=== PATIENT | female | born 1935 | race Caucasian/White ===

== ENCOUNTER 2018-05-10 20:20 | Inpatient (IN) ==
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
[2018-05-10 21:01] LABS: Baso # (Auto) 0.1 th/mm3 (0.0-0.2); Baso % (Auto) 1.7 % (0.0-2.0); Eos % (Auto) 0.7 % (0.0-4.0); Hematocrit 46.3 % (35.0-46.0); Hemoglobin 15.1 gm/dL (11.6-15.3); Lymph # (Auto) 1.9 th/mm3 (1.0-4.8); Lymph % (Auto) 29.3 % (9.0-44.0); Mean Corpuscular HGB Conc 32.5 % (32.0-36.0); Mean Corpuscular Hemoglobin 30.9 pg (27.0-34.0); Mean Corpuscular Volume 95.1 fL (80.0-100.0); Mean Platelet Volume 8.4 fL (7.0-11.0); Mono # (Auto) 0.2 th/mm3 (0.0-0.9); Neut # (Auto) 4.2 th/mm3 (1.8-7.7); Neut % (Auto) 65.3 % (16.0-70.0); Platelet Count 194 th/mm3 (150-450); Red Blood Count 4.87 mil/mm3 (4.00-5.30); Red Cell Distribution Width 13.8 % (11.6-17.2); White Blood Count 6.4 th/mm3 (4.0-11.0)
[2018-05-10 21:03] LABS: Activated Partial Thrombo Time 25.7 sec (23.4-31.7); Prothrombin Time 9.8 sec (9.8-11.6)
--- NOTE | 2018-05-10 21:06 | CT ---
EXAM DATE: 05/10/2018 8:57 PM EST AGE/SEX: 83 years / Female INDICATIONS: Stroke alert. Right side weakness. CLINICAL DATA: This is the patient's initial encounter. Patient reports that signs and symptoms have been present for 1 day and indicates a pain score of 0/10. MEDICAL/SURGICAL HISTORY: None. None. RADIATION DOSE: 57.61 CTDI (mGy) COMPARISON: [facility], CT BRAIN W/O CONTRAST, 04/29/2015. . TECHNIQUE: CT of the head without contrast. Using automated exposure control and adjustment of the mA and/or kV according to patient size, radiation dose was kept as low as reasonably achievable to ob tain optimal diagnostic quality images. DICOM format image data is available electronically for revi ew and comparison. FINDINGS: There is central and cortical atrophy with dilatation of ventricular and sulcal spaces. There is no parenchymal hemorrhage, acute infarction or mass lesion identified. There are no extra-axial fluid c ollections appreciated. Periventricular white matter changes are noted. The posterior fossa is unrem arkable with midline fourth ventricle. The portion of the orbits and paranasal sinuses visualized are unremarkable. CONCLUSION: Atrophy, otherwise negative for an acute process. Avelino Snyder MD FACR CONCLUSION: 1. . Electronically signed by: Avelino Snyder MD 05/10/2018 9:05 PM EST
[2018-05-10 21:07] LABS: Creatine Kinase 25 U/L (26-192)
--- NOTE | 2018-05-10 21:32 | CT ---
EXAM DATE: 05/10/2018 9:24 PM EST AGE/SEX: 83 years / Female INDICATIONS: Stroke alert. Right side weakness. CLINICAL DATA: This is the patient's initial encounter. Patient reports that signs and symptoms have been present for 1 day and indicates a pain score of 5/10. MEDICAL/SURGICAL HISTORY: None. None. RADIATION DOSE: 42.26 CTDI (mGy) ; Combined studies COMPARISON: [facility], CT HEAD W/O CONTRAST, 05/10/2018. . TECHNIQUE: Volumetric scanning was performed using a multi-row detector CT scanner during bolus infu fredrick of 50 ml Visipaque 320 (iodixanol) nonionic water-soluble contrast as a cumulative dose for mul tiple exams. The data was post processed with a variety of visualization algorithms including full volume maximum intensity projection, multi-planar sliding thin slab reformation, curved planar reform ation, and surface rendering techniques. Using automated exposure control and adjustment of the mA a nd/or kV according to patient size, radiation dose was kept as low as reasonably achievable to obtain optimal diagnostic quality images. DICOM format image data is available electronically for review a nd comparison. FINDINGS: Extensive atherosclerotic emphysematous changes without major branch vessel occlusion. Significant vascular disease involving the basilar artery CONCLUSION: 1. Moderate atherosclerotic vascular disease without major branch vessel occlusion. 2. Findings discussed with Dr. Jaeger on today's date . Electronically signed by: Avelino Snyder MD 05/10/2018 9:31 PM EST
--- NOTE | 2018-05-10 21:38 | XR ---
EXAM DATE: 05/10/2018 9:32 PM EST AGE/SEX: 83 years / Female INDICATIONS: Stroke alert. CLINICAL DATA: This is the patient's initial encounter. Patient reports that signs and symptoms have been present for 1 day and indicates a pain score of 0/10. MEDICAL/SURGICAL HISTORY: None. None. COMPARISON: No prior exams available for comparison. FINDINGS: A single AP view of the chest demonstrates cardiomegaly with increase in pulmonary vascularity and in terstitial prominence. No pleural effusions. The cardiomediastinal contours are unremarkable. [place] us structures are intact. CONCLUSION: Cardiomegaly with interstitial edema and central pulmonary vascular congestion. Electronically signed by: Tristian De Oliveira MD 05/10/2018 9:37 PM EST
[2018-05-10] MEDS: Sod Chloride 0.9% Inj 1,000 ML IV.CONT SCH (21:55)
--- NOTE | 2018-05-10 21:55 | CT ---
EXAM DATE: 05/10/2018 9:41 PM EST AGE/SEX: 83 years / Female INDICATIONS: Stroke alert. Right side weakness. CLINICAL DATA: This is the patient's initial encounter. Patient reports that signs and symptoms have been present for 1 day and indicates a pain score of 5/10. MEDICAL/SURGICAL HISTORY: None. None. RADIATION DOSE: 42.26 CTDI (mGy) COMPARISON: No prior exams available for comparison. TECHNIQUE: Volumetric scanning was performed using a multirow detector CT scanner during bolus infus ion of 50 ml Visipaque 320 (iodixanol) nonionic water-soluble contrast as a cumulative dose for mult iple exams. The data was postprocessed with a variety of visualization algorithms including full-vo lume maximum intensity projection, multiplanar sliding thin-slab reformation, curved-planar reformati on, and surface-rendering techniques. Using automated exposure control and adjustment of the mA and/ or kV according to patient size, radiation dose was kept as low as reasonably achievable to obtain op timal diagnostic quality images. DICOM format image data is available electronically for review and comparison. FINDINGS: Aortic Arch: Limited arch visibility with poor contrast opacification. Right Carotid: The common carotid artery is intact. The carotid bulb has a normal configuration wit hout ulceration or narrowing. The internal carotid artery lumen is smooth without stenosis. The ext ernal carotid artery is intact. Left Carotid: Tortuous left internal carotid without hemodynamically significant stenosis. Vertebrals: The vertebral arteries have a symmetric diameter. No stenotic lesions are seen. Percent stenosis is calculated using the diameter of the stenotic region over the diameter of the nor mal distal internal carotid artery. CONCLUSION: 1. Limited exam. I don't see evidence for hemodynamically significant stenosis or source of emboli Electronically signed by: Avelino Snyder MD 05/10/2018 9:54 PM EST
[2018-05-10] MEDS ORDERED: Aspirin 300 MG Supp RECTAL ONE (21:57)
[2018-05-10 22:31] LABS: Chloride 105 meq/L (98-107); Potassium 3.6 meq/L (3.5-5.1); Sodium 143 meq/L (136-145)
[2018-05-10] MEDS: Sodium Chloride 0.45 % Inj 1,000 ML IV.CONT SCH (22:32)
[2018-05-10 22:34] LABS: Albumin 3.3 g/dL (3.4-5.0); Blood Urea Nitrogen 15 mg/dL (7-18); Glucose,Random 108 mg/dL (74-106)
[2018-05-10 22:37] LABS: Aspartate Aminotransferase 18 U/L (15-37); Glomerular Filtration Rate 53 mL/min (>89)
[2018-05-10 22:39] LABS: Anion Gap 10 meq/L (5-15); Carbon Dioxide 28.5 meq/L (21.0-32.0); Total Protein 6.6 g/dL (6.4-8.2)
[2018-05-10 22:42] LABS: Alanine Aminotransferase 19 U/L (10-53)
[2018-05-10 22:48] LABS: Alkaline Phosphatase 60 U/L (45-117)
[2018-05-10 22:48] LABS: Baso # (Auto) 0.1 th/mm3 (0.0-0.2); Baso % (Auto) 1.5 % (0.0-2.0); Eos % (Auto) 0.6 % (0.0-4.0); Hematocrit 42.3 % (35.0-46.0); Hemoglobin 13.9 gm/dL (11.6-15.3); Lymph # (Auto) 1.5 th/mm3 (1.0-4.8); Mean Corpuscular Hemoglobin 31.3 pg (27.0-34.0); Mean Corpuscular Volume 94.8 fL (80.0-100.0); Mean Platelet Volume 8.2 fL (7.0-11.0); Mono # (Auto) 0.2 th/mm3 (0.0-0.9); Mono % (Auto) 3.3 % (0.0-8.0); Neut # (Auto) 4.1 th/mm3 (1.8-7.7); Neut % (Auto) 69.6 % (16.0-70.0); Platelet Count 160 th/mm3 (150-450); Red Blood Count 4.45 mil/mm3 (4.00-5.30); White Blood Count 5.9 th/mm3 (4.0-11.0)
[2018-05-10] MEDS ORDERED: Dextrose 50% in Water 50 ML Vial IV.PUSH PRN (23:42)
[2018-05-10] MEDS ORDERED: Insulin NovoLOG Aspart Correctional Sugar Inj SQ PRN (23:42)
[2018-05-11 06:07] LABS: Baso # (Auto) 0.3 th/mm3 (0.0-0.2); Baso % (Auto) 4.9 % (0.0-2.0); Eos % (Auto) 0.6 % (0.0-4.0); Hemoglobin 14.4 gm/dL (11.6-15.3); Lymph # (Auto) 1.5 th/mm3 (1.0-4.8); Lymph % (Auto) 23.6 % (9.0-44.0); Mean Corpuscular Hemoglobin 30.4 pg (27.0-34.0); Mean Corpuscular Volume 94.9 fL (80.0-100.0); Mean Platelet Volume 8.4 fL (7.0-11.0); Mono # (Auto) 0.3 th/mm3 (0.0-0.9); Mono % (Auto) 5.3 % (0.0-8.0); Neut # (Auto) 4.2 th/mm3 (1.8-7.7); Neut % (Auto) 65.6 % (16.0-70.0); Platelet Count 171 th/mm3 (150-450); Red Blood Count 4.74 mil/mm3 (4.00-5.30); Red Cell Distribution Width 13.5 % (11.6-17.2); White Blood Count 6.3 th/mm3 (4.0-11.0)
[2018-05-11 06:10] LABS: Potassium 3.9 meq/L (3.5-5.1)
[2018-05-11 06:12] LABS: Calcium 7.9 mg/dL (8.5-10.1)
[2018-05-11 06:13] LABS: Carbon Dioxide 30.5 meq/L (21.0-32.0)
[2018-05-11] MEDS ORDERED: Aspirin 325 MG Tablet PO SCH (09:00)
[2018-05-11 10:42] LABS: Chol/HDL Ratio 3.27 Ratio; HDL Cholesterol 54.7 mg/dL (40.0-60.0)
[2018-05-11 11:51] LABS: Hemoglobin A1c 4.6 % (4.3-6.0)
[2018-05-11] MEDS ORDERED: Bisacodyl 10 MG Supp RECTAL PRN (12:09)
--- NOTE | 2018-05-11 12:14 | P.HPIM ---
History of Present Illness Primary Care Physician: Golden Pena Patient is a 83-year-old female with past medical history of ocular stroke and heart failure presenting to the emergency department for acute right-sided weakness 1 day prior to presentation. Patient reports being in her usual state of health prior to development of right-sided weakness in her arm. Patient is unsure if she had weakness in her right leg as she uses a walker at baseline and has some weakness. Patient reports in past having history of ocular stroke approximately 10 years ago. No associated headache. No associated numbness or tingling noted by patient. No slurred speech endorsed. No facial droop endorsed by patient. At time of evaluation patient reports that she still feels weakness diffusely. Review of systems negative for chest pain, palpitations, blurry vision, difficulty swallowing or prior history of swallowing difficulties, abdominal pain, nausea, vomiting, diaphoresis, or palpitations. Patient denies hitting her head. In the emergency department patient received CT and CTA of the head and neck which showed no significant abnormality. Neurology was contacted by emergency department for case review. Lab work unremarkable. MRI head pending Diagnosis (1) TIA (transient ischemic attack): (2) Weakness: (3) Vitamin D deficiency: Review of Systems Review of Systems: all other systems reviewed are negative [facility] Medical History Medical History Cyclic edema (Acute) History of hysterectomy (Acute) Occipital stroke (Acute) Peripheral neuropathy (Acute) Spinal stenosis (Acute) Surgical History Surgical History H/O Achilles tendon repair (Acute) Social History Social History Substance History: No History of Abuse Second Hand Smoke Exposure: Yes Smoking Status: Current every day smoker Tobacco Type: Cigarettes How Often Do You Have a Drink Containing Alcohol: 4 or more times a week Recent Travel in [facility] within the Last 8 Weeks: No Recent Out of Country Travel within the Last 8 Weeks: No Immunization History Tetanus Immunization: Unsure Medications and Allergies Allergies Allergy/AdvReac Type Severity Reaction Status Date / Time No Known Allergies Allergy Verified 05/10/18 20:36 Home Medications Medication Instructions Recorded Confirmed Type Cymbalta PO BID 05/10/18 History Probiotic PO DAILY 05/10/18 History aspirin [Aspirin Low Dose] 81 mg PO DAILY 05/10/18 05/10/18 History cholecalciferol (vitamin D3) 2,000 unit PO DAILY 05/10/18 05/10/18 History [Vitamin D3] furosemide [Lasix] 40 mg PO 3XW 05/10/18 05/10/18 History ibuprofen PO BID 05/10/18 History metoprolol tartrate PO BID 05/10/18 History Active Medications: Active Medications Al Hydroxide/Mg Hydroxide (Milk Of Sridhar Morris) 30 ml PO Q12H PRN PRN Reason: Mild Constipation Aspirin (Aspirin) 325 mg PO DAILY [facility] Last Admin: 05/11/18 08:43 Dose: 325 mg Bisacodyl (Dulcolax Supp) 10 mg RECTAL DAILY PRN PRN Reason: SEVERE CONSITIPATION Dextrose (D50w Vial) 50 ml IV.PUSH UNSCH PRN PRN Reason: per Hypoglycemic Protocol Glucagon (Glucagon Inj) 1 mg OTHER UNSCH PRN PRN Reason: per Hypoglycemic Protocol Heparin Sodium (Porcine) (Heparin Inj) 5,000 units SQ Q8H [facility] Sodium Chloride (Ns Inj) 1,000 mls @ 70 mls/hr IV.CONT .[id number] [facility] Last Infusion: 05/11/18 07:15 Dose: Infused Sodium Chloride (1/2 Normal Saline Inj) 1,000 mls @ 70 mls/hr IV.CONT .[id number] [facility] Last Admin: 05/10/18 22:32 Dose: 70 mls/hr Insulin Aspart (Novolog Insulin Correctional Sugar Inj) 0 unit SQ ACHS PRN; Protocol PRN Reason: Per Protocol Senna/Docusate Sodium (Theresa-Colace) 1 tab PO BID [facility] Sennosides (Senokot) 17.2 mg PO Q12H PRN PRN Reason: Moderate Constipation Physical Exam Vital signs: Last Vital Signs Temp 97.7 F 05/11/18 08:00 Pulse 99 H 05/11/18 08:00 Resp 16 05/11/18 08:00 BP 122/60 05/11/18 08:00 Pulse Ox 96 05/11/18 08:00 Intake & Output 05/09/18 05/10/18 05/11/18 05/12/18 06:59 06:59 06:59 06:59 Intake Total 245 / 245 0 / 0 Output Total 200 / 200 Balance 45 / 45 0 / 0 weight 124.7 kg general: No acute distress, conversational. Obese female HEENT: EOMI, PERRLA Cardiovascular: S1/S2. Not tachycardic Respiratory: Clear to auscultation Gastroenterology: Soft, nontender, nondistended Extremity: No calf tenderness, 1+ lower extremity edema Neurology: V1, V2, V3 intact. No facial droop, no slurred speech, sensation intact upper and lower extremity equally bilaterally, power 5/5 left side, 4/5 right side. Results Labs CBC & Chem 7: 05/11/18 05:37 05/11/18 05:37 Imaging Impressions Chest X-Ray 05/10/18 20:38 CONCLUSION: Cardiomegaly with interstitial edema and central pulmonary vascular congestion. Head CT 05/10/18 20:38 CONCLUSION: Atrophy, otherwise negative for an acute process. Avelino Snyder MD FACR CONCLUSION: 1. . Head CTA 05/10/18 20:38 CONCLUSION: 1. Moderate atherosclerotic vascular disease without major branch vessel occlusion. 2. Findings discussed with Dr. Jaeger on today's date . Neck CTA 05/10/18 20:38 CONCLUSION: 1. Limited exam. I don't see evidence for hemodynamically significant stenosis or source of emboli Caprini VTE Risk Assessment Caprini VTE Risk Assessment: Moderate/High Risk (score >= 2) Caprini Risk Assessment Model: Point Value = 1 Point Value = 2 Point Value = 3 Point Value = 5 Age 41-60 Minor surgery BMI > 25 kg/m2 Swollen legs Varicose veins or History of unexplained or recurrent spontaneous Oral contraceptives or hormone replacement Sepsis (< 1 month) Serious lung disease, including pneumonia (< 1 month) Abnormal pulmonary function Acute myocardial infarction Congestive heart failure (< 1 month) History of inflammatory bowel disease Medical patient at bed rest Age 61-74 Arthroscopic surgery Major open surgery (> 45 min) Laparoscopic surgery (> 45 min) Malignancy Confined to bed (> 72 hours) Immobilizing plaster cast Central venous access Age >= 75 History of VTE Family history of VTE Factor V Leiden Prothrombin [id number] Lupus anticoagulant Anticardiolipin antibodies Elevated serum homocysteine Heparin-induced thrombocytopenia Other congenital or acquired thrombophilia Stroke (< 1 month) Elective arthroplasty Hip, pelvis, or leg fracture Acute spinal cord injury (< 1 month) Prophylaxis Regimen: Total Risk Factor Score Risk Level Prophylaxis Regimen 0-1 Low Early ambulation 2 Moderate Order ONE of the following: *Sequential Compression Device (SCD) *Heparin 5000 units SQ BID 3-4 Higher Order ONE of the following medications: *Heparin 5000 units SQ TID *Enoxaparin/Lovenox 40 mg SQ daily (WT < 150 kg, CrCl > 30 mL/min) *Enoxaparin/Lovenox 30 mg SQ daily (WT < 150 kg, CrCl > 10-29 mL/min) *Enoxaparin/Lovenox 30 mg SQ BID (WT < 150 kg, CrCl > 30 mL/min) AND/OR *Sequential Compression Device (SCD) 5 or more Highest Order ONE of the following medications: *Heparin 5000 units SQ TID (Preferred with Epidurals) *Enoxaparin/Lovenox 40 mg SQ daily (WT < 150 kg, CrCl > 30 mL/min) *Enoxaparin/Lovenox 30 mg SQ daily (WT < 150 kg, CrCl > 10-29 mL/min) *Enoxaparin/Lovenox 30 mg SQ BID (WT < 150 kg, CrCl > 30 mL/min) AND *Sequential Compression Device (SCD) Assessment and Plan (1) TIA (transient ischemic attack): Code(s): G45.9 - Transient cerebral ischemic attack, unspecified Status: Acute (2) Weakness: Code(s): R53.1 - Weakness Status: Acute (3) Vitamin D deficiency: Code(s): E55.9 - Vitamin D deficiency, unspecified Status: Acute Plan Neurology: Suspected TIA, peripheral neuropathy, history of spinal stenosis Neurology consulted and recommendations pending CT head and CT a negative for acute process. MRI brain currently pending. Physical therapy evaluation Speech language pathology evaluation to rule out dysphagia Lipid panel reviewed. HDL 54, LDL 103 Continue aspirin daily Ambulation with assist. Fall precaution Continue Cymbalta Cardiology: Heart failure Patient reports prior history of infection in the blood which made her heart week for which she was started on Lasix a few times a week. Currently patient does not appear to be in acute decompensated heart failure. Continue Lasix as previously prescribed. BNP 338. Endocrinology: Vitamin D deficiency Continue vitamin D supplementation check vitamin D level CODE STATUS: Full code DVT prophylaxis: Heparin subcu Diet: N.p.o. pending swallow evaluation Disposition: Medical service H&P: Quality VTE Deep Vein Thrombosis/Pulmonary Embolism Present on Admission: No
[2018-05-11] MEDS: Heparin - SQ 10,000 UNITS/ML Vial SQ SCH ×2 (13:00→23:18)
--- NOTE | 2018-05-11 14:16 | MR ---
EXAM DATE: 05/11/2018 2:06 PM EST AGE/SEX: 83 years / Female INDICATIONS: Right sided weakness. TIA. CLINICAL DATA: This is the patient's subsequent encounter. Patient reports that signs and symptoms h ave been present for 2 days and indicates a pain score of 0/10. MEDICAL/SURGICAL HISTORY: Spinal stenosis. Right ocular stroke. Cyclic leg edema. Peripheral neuropathy. Hysterectomy. Achilles tendon repair. COMPARISON: [facility], CT HEAD W/O CONTRAST, 05/10/2018. . TECHNIQUE: Multiplanar, multisequence examination of the brain was performed without contrast. FINDINGS: The examination demonstrates a punctate area of abnormal restricted diffusion involving the watershed distribution posteriorly on the left. This would be consistent with a punctate area of acute infarct No other areas of abnormal diffusion signal are identified. Inversion recovery images demonstrate scattered areas of increased T2 signal in the white matter most consistent with microvascular ischemic demyelinative change. Sagittal T1-weighted images demonstrate normal formation of the corpus callosum and midline structure s. The cerebellar tonsils are in their appropriate location. No mass lesion is identified. No significant extra-axial fluid collections are seen. There is mild co rtical atrophy. The appearance of the posterior fossa is unremarkable. CONCLUSION: 1. Punctate area of acute cortical infarct involving the watershed distribution posteriorly on the l eft. 2. Microvascular ischemic demyelinative changes. 3. Mild cortical atrophy. Electronically signed by: Lul Snyder MD 05/11/2018 2:14 PM EST
[2018-05-11] MEDS: Sodium Chloride 0.45 % Inj 1,000 ML IV.CONT SCH (14:44)
--- NOTE | 2018-05-11 15:43 | ECG ---
Date Performed: 05/10/2018 Time Performed: 21:19:17 PTAGE: 83 years EKG: Sinus rhythm WITH OCCASIONAL VENTRICULAR PREMATURE COMPLEXES POSSIBLE RIGHT VENTRICULAR CONDUCTION DELAY LEFT BOY TRICULAR HYPERTROPHY AND ST-T CHANGE INFERIOR MYOCARDIAL INFARCTION ABNORMAL ECG NO PREVIOUS TRACING DOCTOR: Inez Dupont Interpretating Date/Time 05/11/2018 15:40:43
[2018-05-11] MEDS: Duloxetine 60 MG DR Capsule PO SCH (16:38)
[2018-05-11] MEDS: Sod Chloride 0.9% Inj 1,000 ML IV.CONT SCH (16:40)
[2018-05-11] MEDS: Ibuprofen 600 MG Tablet PO PRN (16:57)
--- NOTE | 2018-05-11 18:43 | P.CONNEU ---
History of Present Illness Service: Neurology Primary Care Provider: Golden Pena Chief Complaint: Stroke History of Present Illness: 83-year-old female admitted for stroke symptoms. Presents emergency department with right-sided weakness. ER physician discussed the case with neurology she is admitted for further evaluation. She states she had a stroke affecting her right eye in the past. She takes aspirin daily. Denies any previous history of hemispheric stroke. Denies any history of atrial fibrillation. Denies any head or neck trauma. Has a history of idiopathic polyneuropathy diagnosed and treated by a neurologist up in [place] where she is from. She spends her monsalve in [place]. She also has history of lumbar spinal stenosis. She no longer drives. Review of Systems All other systems reviewed negative except as stated in HPI [facility] - History History Provided By: Patient - Medical History Medical History: Medical History (Last Reviewed 05/11/18 @ 12:47 by Li Amaral Utility Tech, STUDIO ASSISTANT) Cyclic edema History of hysterectomy Occipital stroke Peripheral neuropathy Spinal stenosis - Surgical History Surgical History: Surgical History (Last Reviewed 05/11/18 @ 12:19 by Anson Colvin MD) H/O Achilles tendon repair - Tobacco History Second Hand Smoke Exposure: Yes Tobacco Use In Past 30 Days: Yes Smoking Status: Current every day smoker Tobacco Type: Cigarettes - Alcohol History How Often Do You Have a Drink Containing Alcohol: 4 or more times a week - Substance Use History Substance History: No History of Abuse - Travel History Recent Travel in the [facility] Within the Last 8 Weeks: No Recent Travel Out of the Country Within the Last 8 Weeks: No - Immunization History Tetanus Immunization: Unsure Medications and Allergies Active Medications: Active Medications Al Hydroxide/Mg Hydroxide (Milk Of Sridhar Morris) 30 ml PO Q12H PRN PRN Reason: Mild Constipation Aspirin (Aspirin) 325 mg PO DAILY [facility] Last Admin: 05/11/18 08:43 Dose: 325 mg Bisacodyl (Dulcolax Supp) 10 mg RECTAL DAILY PRN PRN Reason: SEVERE CONSITIPATION Dextrose (D50w Vial) 50 ml IV.PUSH UNSCH PRN PRN Reason: per Hypoglycemic Protocol Duloxetine HCl (Cymbalta) 60 mg PO DAILY [facility] Last Admin: 05/11/18 16:38 Dose: 60 mg Furosemide (Lasix) 40 mg PO EVERY OTHER DAY [facility] Glucagon (Glucagon Inj) 1 mg OTHER UNSCH PRN PRN Reason: per Hypoglycemic Protocol Heparin Sodium (Porcine) (Heparin Inj) 5,000 units SQ Q8HR [facility] Last Admin: 05/11/18 13:00 Dose: 5,000 units Sodium Chloride (Ns Inj) 1,000 mls @ 70 mls/hr IV.CONT .[id number] [facility] Last Admin: 05/11/18 16:40 Dose: Not Given Sodium Chloride (1/2 Normal Saline Inj) 1,000 mls @ 70 mls/hr IV.CONT .[id number] [facility] Last Admin: 05/11/18 14:44 Dose: 70 mls/hr Ibuprofen (Motrin) 600 mg PO Q6H PRN PRN Reason: PAIN SCALE 1 TO 10 Last Admin: 05/11/18 16:57 Dose: 600 mg Insulin Aspart (Novolog Insulin Correctional Sugar Inj) 0 unit SQ ACHS PRN; Protocol PRN Reason: Per Protocol Metoprolol Tartrate (Lopressor) 25 mg PO BID [facility] Senna/Docusate Sodium (Theresa-Colace) 1 tab PO BID [facility] Sennosides (Senokot) 17.2 mg PO Q12H PRN PRN Reason: Moderate Constipation Vitamin D (Vitamin D3) 2,000 unit PO DAILY [facility] Allergies Allergy/AdvReac Type Severity Reaction Status Date / Time No Known Allergies Allergy Verified 05/10/18 20:36 Home Medications Medication Instructions Recorded Confirmed Type Probiotic PO DAILY 05/10/18 History aspirin [Aspirin Low Dose] 81 mg PO DAILY 05/10/18 05/10/18 History cholecalciferol (vitamin D3) 2,000 unit PO DAILY 05/10/18 05/10/18 History [Vitamin D3] furosemide [Lasix] 40 mg PO 3XW 05/10/18 05/10/18 History ibuprofen PO BID 05/10/18 History duloxetine [Cymbalta] 60 mg PO DAILY 05/11/18 05/11/18 History metoprolol tartrate 25 mg PO BID 05/11/18 05/11/18 History Exam Vital signs: Vital Signs 05/10/18 20:30 05/10/18 20:52 05/10/18 21:10 Temperature 97.7 F Pulse Rate 86 85 Respiratory Rate 18 16 Blood Pressure 132/80 136/80 Pulse Oximetry 94 L 97 98 05/10/18 21:30 05/10/18 22:30 05/10/18 22:35 Temperature Pulse Rate 84 91 H Respiratory Rate 18 16 Blood Pressure 145/70 H 135/69 Pulse Oximetry 95 93 L 90 L 05/10/18 23:30 05/11/18 01:43 05/11/18 04:00 Temperature 96.8 F L 96.8 F L Pulse Rate 87 89 89 Respiratory Rate 18 16 16 Blood Pressure 131/86 121/69 121/69 Pulse Oximetry 95 95 95 05/11/18 07:43 05/11/18 08:00 05/11/18 11:43 Temperature 96.7 F L 97.7 F 97.7 F Pulse Rate 98 H 92 H 95 H Respiratory Rate 22 16 19 Blood Pressure 148/112 H 122/60 139/93 H Pulse Oximetry 96 96 97 05/11/18 12:00 Temperature Pulse Rate 92 H Respiratory Rate Blood Pressure Pulse Oximetry Intake & Output 05/10/18 05/11/18 05/11/18 18:59 06:59 18:59 Intake Total 245 / 245 1720 / 1720 Output Total 200 / 200 Balance 45 / 45 1720 / 1720 Weight 124.7 kg Intake: IV 45 / 45 1000 / 1000 NS Inj 1,000 ML @ 70 mls/hr IV. 45 / 45 0 / 0 CONT .[id number] JOAN Rx#: [id number] 1/2 Normal Saline Inj 1,000 ML 1000 / 1000 @ 70 mls/hr IV.CONT .[id number] [facility] Rx#:[id number] Oral 200 / 200 720 / 720 Output: Urine 200 / 200 Other: # Incontinent Voids 3 Date of Last Bowel Movement 05/10/18 # Bowel Movements 0 Weight On Admission 124.7 kg Narrative: GENERAL: in NAD, pleasant obese SKIN: Warm and dry. HEAD: Atraumatic. Normocephalic. EYES: Pupils equal and round. No scleral icterus. ENT: No nasal bleeding or discharge. NECK: Trachea midline. No JVD. CARDIOVASCULAR: Regular rate and rhythm. RESPIRATORY: No accessory muscle use. GASTROINTESTINAL: Abdomen soft, non-tender, nondistended. MUSCULOSKELETAL: Extremities without clubbing, cyanosis, or edema. No obvious deformities. NEUROLOGICAL: Awake and alert. Oriented x3, no aphasia, fluent articulate, No facial asymmetry, OU 3-2mm, eomi, VFF, No drift, right lower extremity strength 2-3 out of 5, left lower extremity 5- out of 5, mild lower extremity edema, stocking distribution neuropathic changes reduced light touch pinprick up to the knees PSYCHIATRIC: Appropriate mood and affect; insight and judgment normal. - Constitutional no acute distress - Routine HEENT Exam Head: Present: normocephalic Eye: Present: EOMI Results - Labs CBC & Chem 7: 05/11/18 05:37 05/11/18 05:37 Labs: Laboratory Results - last 24 hr 05/10/18 05/10/18 05/10/18 20:28 20:28 20:28 CBC w Diff Auto diff final WBC 6.4 RBC 4.87 Hgb 15.1 Hct 46.3 H MCV 95.1 MCH 30.9 MCHC 32.5 RDW 13.8 Plt Count 194 MPV 8.4 Neut % (Auto) 65.3 Lymph % (Auto) 29.3 Amador % (Auto) 3.0 Eos % (Auto) 0.7 Baso % (Auto) 1.7 Neut # (Auto) 4.2 Lymph # (Auto) 1.9 [place] # (Auto) 0.2 Eos # (Auto) 0.0 Baso # (Auto) 0.1 WBC Differential . Differential Comment . PT 9.8 INR 1.0 APTT 25.7 Fibrinogen 341 Sodium 143 Potassium 3.6 Chloride 105 Carbon Dioxide 28.5 Anion Gap 10 BUN 15 Creatinine 1.00 Estimated GFR 53 L POC Glucose Random Glucose 108 H Hemoglobin A1c Calcium 8.0 L Total Bilirubin 0.3 AST 18 ALT 19 Alkaline Phosphatase 60 Total Creatine Kinase 25 L Troponin I Less than 0.02 L B-Natriuretic Peptide Total Protein 6.6 Albumin 3.3 L Triglycerides Cholesterol LDL Cholesterol, Calc HDL Cholesterol Cholesterol/HDL Ratio Blood Type Blood Type Recheck Antibody Screen 05/10/18 05/10/18 05/10/18 20:28 20:34 20:49 CBC w Diff WBC RBC Hgb Hct MCV MCH MCHC RDW Plt Count MPV Neut % (Auto) Lymph % (Auto) Amador % (Auto) Eos % (Auto) Baso % (Auto) Neut # (Auto) Lymph # (Auto) [place] # (Auto) Eos # (Auto) Baso # (Auto) WBC Differential Differential Comment PT INR APTT Fibrinogen Sodium Potassium Chloride Carbon Dioxide Anion Gap BUN Creatinine Estimated GFR POC Glucose 107 Random Glucose Hemoglobin A1c Calcium Total Bilirubin AST ALT Alkaline Phosphatase Total Creatine Kinase Troponin I B-Natriuretic Peptide 338 H Total Protein Albumin Triglycerides Cholesterol LDL Cholesterol, Calc HDL Cholesterol Cholesterol/HDL Ratio Blood Type O Positive Blood Type Recheck Required Antibody Screen Negative 05/10/18 05/11/18 05/11/18 22:30 05:37 05:37 CBC w Diff Auto diff final Auto diff final WBC 5.9 6.3 RBC 4.45 4.74 Hgb 13.9 14.4 Hct 42.3 45.0 MCV 94.8 94.9 MCH 31.3 30.4 MCHC 33.0 32.0 RDW 14.0 13.5 Plt Count 160 171 MPV 8.2 8.4 Neut % (Auto) 69.6 65.6 Lymph % (Auto) 25.0 23.6 Amador % (Auto) 3.3 5.3 Eos % (Auto) 0.6 0.6 Baso % (Auto) 1.5 4.9 H Neut # (Auto) 4.1 4.2 Lymph # (Auto) 1.5 1.5 [place] # (Auto) 0.2 0.3 Eos # (Auto) 0.0 0.0 Baso # (Auto) 0.1 0.3 H WBC Differential . . Differential Comment . . PT INR APTT Fibrinogen Sodium 142 Potassium 3.9 Chloride 105 Carbon Dioxide 30.5 Anion Gap 7 BUN 18 Creatinine 1.10 H Estimated GFR 47 L POC Glucose Random Glucose 107 H Hemoglobin A1c Calcium 7.9 L Total Bilirubin AST ALT Alkaline Phosphatase Total Creatine Kinase Troponin I B-Natriuretic Peptide Total Protein Albumin Triglycerides 108 Cholesterol 179 LDL Cholesterol, Calc 103 H HDL Cholesterol 54.7 Cholesterol/HDL Ratio 3.27 Blood Type Blood Type Recheck Antibody Screen 05/11/18 05/11/18 05/11/18 05:37 08:09 11:21 CBC w Diff WBC RBC Hgb Hct MCV MCH MCHC RDW Plt Count MPV Neut % (Auto) Lymph % (Auto) Am[place] % (Auto) Eos % (Auto) Baso % (Auto) Neut # (Auto) Lymph # (Auto) [place] # (Auto) Eos # (Auto) Baso # (Auto) WBC Differential Differential Comment PT INR APTT Fibrinogen Sodium Potassium Chloride Carbon Dioxide Anion Gap BUN Creatinine Estimated GFR POC Glucose 96 108 Random Glucose Hemoglobin A1c 4.6 Calcium Total Bilirubin AST ALT Alkaline Phosphatase Total Creatine Kinase Troponin I B-Natriuretic Peptide Total Protein Albumin Triglycerides Cholesterol LDL Cholesterol, Calc HDL Cholesterol Cholesterol/HDL Ratio Blood Type Blood Type Recheck Antibody Screen 05/11/18 05/11/18 16:46 17:37 CBC w Diff WBC RBC Hgb Hct MCV MCH MCHC RDW Plt Count MPV Neut % (Auto) Lymph % (Auto) [place] % (Auto) Eos % (Auto) Baso % (Auto) Neut # (Auto) Lymph # (Auto) [place] # (Auto) Eos # (Auto) Baso # (Auto) WBC Differential Differential Comment PT INR APTT Fibrinogen Sodium Potassium Chloride Carbon Dioxide Anion Gap BUN Creatinine Estimated GFR POC Glucose 103 Random Glucose Hemoglobin A1c Calcium Total Bilirubin AST ALT Alkaline Phosphatase Total Creatine Kinase Troponin I 0.02 B-Natriuretic Peptide Total Protein Albumin Triglycerides Cholesterol LDL Cholesterol, Calc HDL Cholesterol Cholesterol/HDL Ratio Blood Type Blood Type Recheck Antibody Screen - Imaging Impressions Chest X-Ray 05/10/18 20:38 CONCLUSION: Cardiomegaly with interstitial edema and central pulmonary vascular congestion. Head CT 05/10/18 20:38 CONCLUSION: Atrophy, otherwise negative for an acute process. Avelino Snyder MD FACR CONCLUSION: 1. . Head CTA 05/10/18 20:38 CONCLUSION: 1. Moderate atherosclerotic vascular disease without major branch vessel occlusion. 2. Findings discussed with Dr. Jaeger on today's date . Neck CTA 05/10/18 20:38 CONCLUSION: 1. Limited exam. I don't see evidence for hemodynamically significant stenosis or source of emboli Head MRI 05/11/18 00:00 CONCLUSION: 1. Punctate area of acute cortical infarct involving the watershed distribution posteriorly on the left. 2. Microvascular ischemic demyelinative changes. 3. Mild cortical atrophy. 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 Appears to have one in the posterior region and one in the left anterior region at the SHRAVAN region territory. Likely related to chronic small vessel disease, intracranial atherosclerosis as noted on CTA of the brain. CTA carotids negative for vaso-occlusive disease 2D echo pending LDL minimally elevated, HbA1c within normal limits Recommendation We will change her from aspirin to Aggrenox Statin to achieve LDL less than 70 in addition to assist in atherosclerotic regression Follow-up 2D echo Behavioral modification and risk factor reduction. Weight loss, blood pressure control, blood sugar control, lipid control. Exercise Will need inpatient rehabilitation
--- NOTE | 2018-05-11 19:10 | ECHRPT ---
Indication: CVA/TIA CONCLUSIONS Moderately dilated left ventricle. Wall thickness is normal. The left ventricular systolic function is severely reduced with an estimated ejection fraction in th e range of 30-35%. There was limited left ventricular wall motion assessment due to poor endocardial visualization. There appears to be lateral wall hypokinesis in the A4C view with limited visualization. There appears to be a large atheroma versus intramural hematoma in the ascending aorta at the sinotu bular junction by limited visualization. Clinical correlation and further evaluation with either CTA aorta versus TOD recommended. The left atrial size is mildly dilated. Mild mitral valve regurgitation. A Mitral valve annuloplasty ring appears to be present versus severe mitral annular calcification. Aortic valve sclerosis is present. There is trace tricuspid valve regurgitation. The estimated pulmonary arterial pressure is 52 mmHg. BP: / HR: Rhythm: MEASUREMENTS (Male / Female) Normal Values Technical Quality:Technically difficult study 2D ECHO LV Diastolic Diameter PLAX 6.5 cm 4.2 - 5.9 / 3.9 - 5.3 cm LV Systolic Diameter PLAX 5.4 cm IVS Diastolic Thickness 0.8 cm 0.6 - 1.0 / 0.6 - 0.9 cm LVPW Diastolic Thickness 0.9 cm 0.6 - 1.0 / 0.6 - 0.9 cm LV Relative Wall Thickness 0.3 RV Internal Dim ED PLAX 2.5 cm LVOT Diameter 1.8 cm Aortic Root Diameter 2.8 cm LA Systolic Diameter LX 4.5 cm 3.0 - 4.0 / 2.7 - 3.8 cm DOPPLER AV Peak Velocity 261.0 cm/s AV Peak Gradient 27.2 mmHg AV Mean Gradient 14.0 mmHg AV Velocity Time Integral 50.6 cm LVOT Peak Velocity 114.0 cm/s LVOT Peak Gradient 5.2 mmHg LVOT Velocity Time Integral 19.6 cm AV Area Cont Eq vti 1.0 cm AV Area Cont Eq pk 1.1 cm Mitral E Point Velocity 75.1 cm/s Mitral A Point Velocity 121.0 cm/s Mitral E to A Ratio 0.6 LV E' Lateral Velocity 7.3 cm/s Mitral E to LV E' Lateral Ratio 10.3 LV E' Septal Velocity 4.3 cm/s Mitral E to LV E' Septal Ratio 17.5 TR Peak Velocity 324.0 cm/s TR Peak Gradient 42.0 mmHg Right Atrial Pressure 10.0 mmHg Pulmonary Artery Systolic Pressu 52.0 mmHg Right Ventricular Systolic Press 52.0 mmHg PV Peak Velocity 148.0 cm/s PV Peak Gradient 8.8 mmHg FINDINGS LEFT VENTRICLE Moderately dilated left ventricle. Mild concentric left ventricular hypertrophy. There was limited left ventricular wall motion assessment due to poor endocardial visualization. The left ventricular systolic function is severely reduced with an estimated ejection fraction in th e range of 30-35%. There appears to be lateral wall hypokinesis in the A4C view with limited visualization. RIGHT VENTRICLE Normal right ventricular size and systolic function. LEFT ATRIUM The left atrial size is mildly dilated. RIGHT ATRIUM The right atrial size is normal. ATRIAL SEPTUM Normal atrial septal thickness without atrial level shunting by limited color doppler interrogation. AORTA The aortic root and proximal ascending aorta are normal in size on limited imaging. There appears to be a large atheroma versus intramural hematoma in the ascending aorta at the sinotu bular junction by limited visualization. MITRAL VALVE A Mitral valve annuloplasty ring appears to be present versus severe mitral annular calcification. Mild mitral valve regurgitation. AORTIC VALVE Trileaflet aortic valve. Aortic valve sclerosis is present. TRICUSPID VALVE There is trace tricuspid valve regurgitation. The estimated pulmonary arterial pressure is 52 mmHg. PULMONARY VALVE No pulmonary valve regurgitation or stenosis. VESSELS The inferior vena cava was not well visualized. PERICARDIUM No pericardial effusion. John Young (Electronically Signed) Final Date:11 May 2018 19:09 Amended: 11 May 2018 19:59
[2018-05-11] MEDS: Senna/Docusate Sodium 8.6/50 MG Tablet PO SCH (21:11)
[2018-05-11] MEDS: Metoprolol Tartrate 25 MG Tablet PO SCH (21:11)
--- NOTE | 2018-05-11 22:34 | CT ---
EXAM DATE: 05/11/2018 10:28 PM EST AGE/SEX: 83 years / Female INDICATIONS: Evaluate for dissection. CLINICAL DATA: This is the patient's initial encounter. Patient reports that signs and symptoms have been present for 1 day and indicates a pain score of 4/10. MEDICAL/SURGICAL HISTORY: None. Hysterectomy. RADIATION DOSE: 23.05 CTDI (mGy) COMPARISON: No prior exams available for comparison. TECHNIQUE: Volumetric scanning was performed using a multi-row detector CT scanner during bolus infu fredrick of 100 ml Omnipaque 350 (iohexol) nonionic water-soluble contrast as a single exam dose. The d sri was post processed with a variety of visualization algorithms including full volume maximum inten sity projection, multi-planar sliding thin slab reformation, curved planar reformation, and surface r endering techniques. Using automated exposure control and adjustment of the mA and/or kV according t o patient size, radiation dose was kept as low as reasonably achievable to obtain optimal diagnostic quality images. DICOM format image data is available electronically for review and comparison. FINDINGS: Lungs: There is no consolidation or pneumothorax. No concerning pulmonary nodule is visualized. No pleural fluid is present. Mild interstitial lung disease. Mediastinum: No abnormally enlarged lymph nodes by CT criteria. No axillary or hilar abnormalities a re identified. Abdomen: The liver and spleen are free of focal defects. The gallbladder and pancreas demonstrate no abnormality. The adrenal glands are normal. The kidneys demonstrate no evidence of solid renal mass or hydronephrosis. No free fluid or abdominal masses are identified. No para-aortic adenopathy is see n. Pelvis: No evidence of free fluid or pelvic mass. No abnormally enlarged inguinal or retroperitoneal lymph nodes are present. The bladder is unremarkable. Thoracic Aorta: The thoracic aortic root is normal with normal branching of the great vessels. Ther e is no evidence of aneurysm or dissection. Abdominal Aorta: The aorta is normal in caliber but tortuous without aneurysm or dissection. The re nal arteries are patent bilaterally. The proximal celiac and superior mesenteric arteries are patent and normal in diameter. 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 There is no significant stenosis. The femoral bifurcations are unremarkable. CONCLUSION: 1. No evidence of dissection or significant aneurysm. The common iliac arteries are both enlarged. T here is atherosclerotic disease throughout the great branches from the abdominal aorta without obviou s two-dimensional stenosis Electronically signed by: Bud Patel MD 05/11/2018 10:33 PM EST
[2018-05-12] MEDS: Sod Chloride 0.9% Inj 1,000 ML IV.CONT SCH (04:45)
[2018-05-12] MEDS: Sodium Chloride 0.45 % Inj 1,000 ML IV.CONT SCH (04:46)
[2018-05-12 06:13] LABS: Hematocrit 41.8 % (35.0-46.0); Hemoglobin 14.2 gm/dL (11.6-15.3); Mean Corpuscular Hemoglobin 31.8 pg (27.0-34.0); Mean Corpuscular Volume 93.4 fL (80.0-100.0); Mean Platelet Volume 8.2 fL (7.0-11.0); Platelet Count 151 th/mm3 (150-450); Red Blood Count 4.48 mil/mm3 (4.00-5.30); Red Cell Distribution Width 13.4 % (11.6-17.2); White Blood Count 5.4 th/mm3 (4.0-11.0)
[2018-05-12 06:16] LABS: Potassium 3.8 meq/L (3.5-5.1)
[2018-05-12 06:19] LABS: Calcium 8.1 mg/dL (8.5-10.1)
[2018-05-12 06:20] LABS: Carbon Dioxide 28.2 meq/L (21.0-32.0)
[2018-05-12] MEDS: Heparin - SQ 10,000 UNITS/ML Vial SQ SCH ×3 (06:40→22:33)
[2018-05-12] MEDS: Ibuprofen 600 MG Tablet PO PRN (07:48)
--- NOTE | 2018-05-12 08:27 | P.PNIM ---
Subjective Interval history: Patient seen and examined this morning LEFT anterior shoulder pain overnight that required ibuprofen. first noticed after falling to floor. no sharp pain down arm and tender in muscle no fever or chills says she did not get out of the bed + weakness on RIGHT side noticed MRI reviewed -->Punctate area of acute cortical infarct involving the watershed distribution posteriorly on the left. Neurology recommendations appreciated. will need rehab 2D echo reviewed. willl need outpatient follow up Physical Exam Vital signs: Last Vital Signs Temp 96.5 F L 05/12/18 04:00 Pulse 93 H 05/12/18 04:00 Resp 20 05/12/18 04:00 BP 154/108 H 05/12/18 04:00 Pulse Ox 99 05/12/18 04:00 Intake & Output 05/10/18 05/11/18 05/12/18 05/13/18 06:59 06:59 06:59 06:59 Intake Total 245 / 245 2720 / 2720 Output Total 200 / 200 Balance 45 / 45 2720 / 2720 Weight 124.7 kg 126.1 kg gen: nad cvs: s1/s2 resp: cta bilaterally gi: soft, non tender, non distended, no guarding or rebound ext: no edema, 2+ radial and DPP bilaterally neuro: no facial droop, no slurred speech, eomi, perrla. power 3/5 RIGHT side Ue/LE bilaterally. power 4/5 LEFT side UE/LE bilaterally. no tongue deviation. v1,v2,v3 intact. Narrative: . Results Labs CBC & Chem 7: 05/12/18 05:35 05/12/18 05:35 Imaging Imaging: Impressions Head MRI 05/11/18 00:00 CONCLUSION: 1. Punctate area of acute cortical infarct involving the watershed distribution posteriorly on the left. 2. Microvascular ischemic demyelinative changes. 3. Mild cortical atrophy. 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 There is no significant stenosis. The femoral bifurcations are unremarkable. CONCLUSION: 1. No evidence of dissection or significant aneurysm. The common iliac arteries are both enlarged. 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 MRI brain reviewed: Punctate area of acute cortical infarct involving the watershed distribution posteriorly on the left. Physical therapy evaluation- rehab Speech language pathology eval - regular w/ thin liquids Lipid panel reviewed. HDL 54, LDL 103 Continue aspirin daily Ambulation with assist. Fall precaution Continue Cymbalta Cardiology: known history of Heart failure Continue Lasix as previously prescribed. BNP 338. - echo reviewed via EMR. outpatient follow up on discharge. Endocrinology: Vitamin D deficiency Continue vitamin D supplementation CODE STATUS: Full code DVT prophylaxis: Heparin subcu Diet: regular thin liquids Disposition: Medical service Progress Note: Quality VTE Deep Vein Thrombosis/Pulmonary Embolism Present on Admission: No _ (1) Hypertension Qualifiers: Hypertension type: (2) Obesity Qualifiers: Body mass index: Obesity classification: Obesity type: Serious obesity comorbidity presence:
[2018-05-12] MEDS: Metoprolol Tartrate 25 MG Tablet PO SCH ×2 (09:37→22:34)
[2018-05-12] MEDS: Duloxetine 60 MG DR Capsule PO SCH (09:37)
[2018-05-12] MEDS: Senna/Docusate Sodium 8.6/50 MG Tablet PO SCH ×2 (09:37→22:34)
[2018-05-12] MEDS: Furosemide 40 MG Tablet PO SCH (09:37)
--- NOTE | 2018-05-12 11:33 | XR ---
EXAM DATE: 05/12/2018 11:25 AM EST AGE/SEX: 83 years / Female INDICATIONS: Fall, Left shoulder pain. CLINICAL DATA: This is the patient's initial encounter. Patient reports that signs and symptoms have been present for 3 days and indicates a pain score of 6/10. MEDICAL/SURGICAL HISTORY: Arthritis. None. COMPARISON: No prior exams available for comparison. FINDINGS: The humeral head appears adequately situated within the glenoid fossa. There are degenerative changes of the glenohumeral joint and the acromioclavicular joint. The limited portion of lung apex visualized is clear. CONCLUSION: Degenerative changes. No acute fracture identified. Electronically signed by: Lul Snyder MD 05/12/2018 11:32 AM EST
[2018-05-13] MEDS: Ibuprofen 600 MG Tablet PO PRN ×2 (01:27→21:35)
[2018-05-13] MEDS: Heparin - SQ 10,000 UNITS/ML Vial SQ SCH ×3 (06:31→21:45)
[2018-05-13 07:01] LABS: Bilirubin,Urine Negative (Negative); Clarity,Urine Clear (Clear); Color,Urine Yellow (Yellw/Straw); Glucose,Urine (UA) Negative (Negative); Leukocyte Esterase,Urine Negative (Negative); Nitrite,Urine Positive (Negative); Specific Gravity,Urine 1.015 (1.002-1.035); Urobilinogen,Urine 0.2 mg/dL (Less than 2)
[2018-05-13 07:05] LABS: Bacteria,Urine Many /hpf; Squamous Epithelial Cell,Urine 0-5 /hpf (0-5)
[2018-05-13 07:10] LABS: Amphetamine Screen,Urine Neg (Neg); Barbiturate Screen,Urine Neg (Neg); Cannabinoid Screen,Urine Neg (Neg); Cocaine Screen,Urine Neg (Neg)
[2018-05-13 07:13] LABS: Opiate Screen,Urine Neg (Neg)
[2018-05-13] MEDS: Duloxetine 60 MG DR Capsule PO SCH (09:09)
[2018-05-13] MEDS: Metoprolol Tartrate 25 MG Tablet PO SCH ×2 (09:09→21:34)
[2018-05-13] MEDS: Senna/Docusate Sodium 8.6/50 MG Tablet PO SCH ×2 (09:09→21:34)
--- NOTE | 2018-05-13 10:08 | P.PNIM ---
Subjective Interval history: Patient seen and evaluated this morning at bedside. No acute complaints at this time. Patient reports that she is feeling as good as she has felt during hospitalization. Patient denied headache, palpitations, chest pain, dizziness. Patient reports that she was able to work very good today with physical therapy and has had her best day moving since auscultation. Patient feels stronger today than before. Patient is not complaining of any shoulder pain. Urine culture returned presumptive gram-negative sharon. Patient reports that she might of had discomfort days ago but currently has been feeling better Physical Exam Vital signs: Last Vital Signs Temp 97.7 F 05/13/18 08:00 Pulse 88 05/13/18 08:00 Resp 21 05/13/18 08:00 BP 139/75 05/13/18 08:00 Pulse Ox 97 05/13/18 08:00 Intake & Output 05/11/18 05/12/18 05/13/18 05/14/18 06:59 06:59 06:59 06:59 Intake Total 245 / 245 2720 / 2720 1060 / 1060 240 / 240 Output Total 200 / 200 200 / 200 Balance 45 / 45 2720 / 2720 1060 / 1060 40 / 40 Weight 124.7 kg 126.1 kg 127.1 kg General: No acute distress, conversational. HEENT: EOMI, PERRLA Respiratory: Clear to auscultation Gas intestinal: Soft, nontender, nondistended, no guarding or rebound appreciated Cardiovascular: S1/S2. Regular rhythm Neurology: No facial droop, no slurred speech, power 3/5 on right upper and lower extremity, power 4/5 on left upper and lower extremity. Sensation intact throughout Extremities: No calf tenderness or edema noted Results Labs CBC & Chem 7: 05/12/18 05:35 05/12/18 05:35 Imaging Imaging: Impressions Shoulder X-Ray 05/12/18 00:00 CONCLUSION: Degenerative changes. No acute fracture identified. 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 MRI brain reviewed: Punctate area of acute cortical infarct involving the watershed distribution posteriorly on the left. Physical therapy evaluation- rehab Speech language pathology eval - regular w/ thin liquids Lipid panel reviewed. HDL 54, LDL 103 Continue Aggrenox Ambulation with assist. Fall precaution Continue Cymbalta - cbc, bnp in am Cardiology: known history of Heart failure Continue Lasix as previously prescribed. BNP 338. - echo reviewed via EMR. outpatient follow up on discharge with per diem interpreter as patient with known history of heart failure with a reduced function. Endocrinology: Vitamin D deficiency Continue vitamin D supplementation CODE STATUS: Full code DVT prophylaxis: Heparin subcu Diet: regular thin liquids Disposition: am transfer to inpatient rehabilitation Progress Note: Quality VTE Deep Vein Thrombosis/Pulmonary Embolism Present on Admission: No _ (1) Hypertension Qualifiers: Hypertension type: (2) Obesity Qualifiers: Body mass index: Obesity classification: Obesity type: Serious obesity comorbidity presence:
[2018-05-14] MEDS: Heparin - SQ 10,000 UNITS/ML Vial SQ SCH ×3 (05:52→21:00)
[2018-05-14] MEDS: Duloxetine 60 MG DR Capsule PO SCH (09:25)
[2018-05-14] MEDS: Furosemide 40 MG Tablet PO SCH (09:25)
[2018-05-14] MEDS: Senna/Docusate Sodium 8.6/50 MG Tablet PO SCH ×2 (09:26→20:45)
[2018-05-14] MEDS: Metoprolol Tartrate 25 MG Tablet PO SCH ×2 (09:26→20:46)
[2018-05-14] MEDS: levoFLOXacin 250 MG Tablet PO SCH (20:53)
[2018-05-14 23:51] LABS: Vitamin D 1,25-Dihydroxy 32 pg/mL (18-72)
[2018-05-15] MEDS: Heparin - SQ 10,000 UNITS/ML Vial SQ SCH (05:32)
[2018-05-15 08:37] VITALS: BP 105/68; RESP 16; TEMP 97.1; O2SAT 93
[2018-05-15] MEDS: Duloxetine 60 MG DR Capsule PO SCH (08:58)
[2018-05-15] MEDS: levoFLOXacin 250 MG Tablet PO SCH (08:58)
[2018-05-15] MEDS: Metoprolol Tartrate 25 MG Tablet PO SCH (08:58)
[2018-05-15] MEDS: Senna/Docusate Sodium 8.6/50 MG Tablet PO SCH (08:58)
--- NOTE | 2018-05-15 09:13 | P.DS ---
DS: Providers Date of admission: 05/12/18 09:12 Primary care physician: Golden Pena Consults: 05/10/18 20:38 Consult to Neurology Stat Consulting Provider: Javier Henry For STAT consult, spoke directly to:: Dr. Jaeger Reason for Consultation: Brain Attack Notified:: Service Spoke with:: porsha Date Notified:: 05/10/18 Time Notified:: 22:28 Comments:: verified dr tony schofield with [facility] ED re Stat consult Ordering Provider: SHAISTA 05/14/18 10:13 HUB Only Consult Order Routine Consulting Provider: Makenna Mace Reason for Consultation: review for admission for tomorrow. 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 Neurology consultation was appreciated after patient was found to have Punctate area of acute cortical infarct involving the watershed distribution posteriorly on the left and microvascular ischemic demyelinative changes. Patient was transitioned from aspirin over to Aggrenox. Physical therapy evaluated patient with recommendation for inpatient rehab. Patient clinically stable during hospitalization and is now ready for transition out of hospital with PMD follow-up as well as neurology follow-up upon discharge. Urinalysis from emergency department ordered with gram- negative sharon. We will treat empirically with Levaquin 250 mg twice daily x 3 days. Time Spent with Patient Total time spent providing and/or coordinating discharge services: > 45 min Patient was admitted to [facility] where followings treatments and services were provided in her care. Neurology consultation was appreciated after patient was found to have Punctate area of acute cortical infarct involving the watershed distribution posteriorly on the left and microvascular ischemic demyelinative changes. Patient was transitioned from aspirin over to Aggrenox. Physical therapy evaluated patient with recommendation for inpatient rehab. Patient clinically stable during hospitalization and is now ready for transition out of hospital with PMD follow-up as well as neurology follow-up upon discharge. Urinalysis from emergency department ordered with gram- negative sharon. We will treat empirically with Levaquin 250 mg twice daily x 3 days. Quality: Stroke Last date observed well: 05/10/18 Last time observed well: 10:00 Quality: VTE Deep Vein Thrombosis/Pulmonary Embolism Present on Admission: No Exam Narrative Exam Narrative: General: No acute distress, conversation HEENT: EOMI, PERRLA Cardiovascular: S1/S2. Respiratory: Clear to auscultation anterior and posteriorly. No intercostal muscle use. Gastrointestinal: Soft, nontender, nondistended, no guarding or rebound Extremity: 2+ bounding radial pulses bilaterally upper extremity. Neurology: Sensation intact upper and lower extremity, no slurred speech, no dysarthria, no facial droop, power 3+/5 throughout Results Labs on day of discharge: Labs from last 24 hours 05/14/18 05/13/18 05/12/18 11:54 06:45 05:35 POC Glucose 106 Vit D 1,25-Dihydroxy 32 1,25 Dihydroxy Vit D2 <8 1,25 Dihydroxy Vit D3 32 Urine Color Yellow Urine Clarity Clear Urine pH 6.0 Ur Specific [place] 1.015 Urine Protein Negative Urine Glucose (UA) Negative Urine Ketones Negative Urine Occult Blood Negative Urine Nitrate Positive H Urine Bilirubin Negative Urine Urobilinogen 0.2 Ur Leukocyte Esterase Negative Ur Squamous Epith Cells 0-5 Urine Bacteria Many H Micro UA Comment Culture indicated Ur Microscopic Review Microscopic reviewed Urine Culture Comments Culture indicated Preliminary micro results at discharge 05/13/18 06:45 Urine Culture - Preliminary Clean Catch Urine gram negative rods Impressions ITS Impressions Chest X-Ray 05/10/18 20:38 CONCLUSION: Cardiomegaly with interstitial edema and central pulmonary vascular congestion. Head CT 05/10/18 20:38 CONCLUSION: Atrophy, otherwise negative for an acute process. Avelino Snyder MD FACR CONCLUSION: 1. . Head CTA 05/10/18 20:38 CONCLUSION: 1. Moderate atherosclerotic vascular disease without major branch vessel occlusion. 2. Findings discussed with Dr. Jaeger on today's date . Neck CTA 05/10/18 20:38 CONCLUSION: 1. Limited exam. I don't see evidence for hemodynamically significant stenosis or source of emboli Head MRI 05/11/18 00:00 CONCLUSION: 1. Punctate area of acute cortical infarct involving the watershed distribution posteriorly on the left. 2. Microvascular ischemic demyelinative changes. 3. Mild cortical atrophy. 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 There is no significant stenosis. The femoral bifurcations are unremarkable. CONCLUSION: 1. No evidence of dissection or significant aneurysm. The common iliac arteries are both enlarged. There is atherosclerotic disease throughout the great branches from the abdominal aorta without obvious two-dimensional stenosis Shoulder X-Ray 05/12/18 00:00 CONCLUSION: Degenerative changes. No acute fracture identified. Discharge Plan Discharge Disposition Patient Disposition: 62 Rehab Inpatient Discharge Condition Condition: Stable Discharge Order Discharge Orders: Discharge Order (Routine); Ordered 05/15/18 Ordered By: Anson Colvin Neurology Clear for Discharge (Routine); Ordered 05/13/18 Ordered By: Javier Henry Discharge Details Anticipated Discharge Date: 05/15/18 Physicians Team ED Provider: Yazan Oseguera Primary Care Provider: Golden Pena Attending Provider: Anson Colvin Other Providers: Javier Henry ; [facility] Rxs /Orders / Referrals /Forms Prescriptions: New atorvastatin 40 mg Tablet 40 mg PO HS 30 Days Qty: 30 RF: 0 aspirin-dipyridamole [Aggrenox] 25-200 mg Capsule, Er Multiphase 12 Hr 1 cap PO Q12HR 30 Days Qty: 30 RF: 0 levofloxacin 250 mg Tablet 250 mg PO BID 2 Days Qty: 4 RF: 0 Continue furosemide [Lasix] 40 mg Tablet 40 mg PO 3XW RF: 0 cholecalciferol (vitamin D3) [Vitamin D3] 2,000 unit Tablet 2,000 unit PO DAILY RF: 0 metoprolol tartrate 25 mg Tablet 25 mg PO BID RF: 0 duloxetine [Cymbalta] 60 mg Capsule,Delayed Release(Dr/Ec) 60 mg PO DAILY RF: 0 Discontinued aspirin [Aspirin Low Dose] 81 mg Tablet,Delayed Release (Dr/Ec) 81 mg PO DAILY RF: 0 Probiotic PO DAILY RF: 0 ibuprofen PO BID RF: 0 Referrals: Golden Pena [Primary Care Provider] - See Instructions Javier Henry MD [Physician] - See Instructions (Call to schedule appointment in 1-2 weeks ) Status ED Status: Left Department Discharge Information Discharge Date/Time: 05/15/18 11:26
[2018-05-15 10:36] VITALS: PULSE 86
== END 2018-05-15 11:26 ==
LOC: EDBD → PHEDA 20:20 → PHED 20:20 → PH3 05-11 01:25
PROVIDERS: ADMIT Internal Medicine; ATTEND Internal Medicine
DX: R29.703 NIHSS score 3; Z86.73 Personal history of transient ischemic attack (TIA), and cerebral infarction without residual deficits; I63.512 Cerebral infarction due to unspecified occlusion or stenosis of left middle cerebral artery; E55.9 Vitamin D deficiency, unspecified; E66.9 Obesity, unspecified; I63.9 Cerebral infarction, unspecified; G93.9 Disorder of brain, unspecified; G81.91 Hemiplegia, unspecified affecting right dominant side; M48.061 Spinal stenosis, lumbar region without neurogenic claudication; I50.9 Heart failure, unspecified; F17.210 Nicotine dependence, cigarettes, uncomplicated; I11.0 Hypertensive heart disease with heart failure; G60.9 Hereditary and idiopathic neuropathy, unspecified; I67.2 Cerebral atherosclerosis